=== PATIENT | female | born 1955 | race Caucasian/White ===

== ENCOUNTER 2021-10-11 17:39 | Emergency (ER) | payer MEDICARE, OTHER ==
[~2021-10-11] VITALS: Ht 167.6 cm; Wt 72.7 kg
[2021-10-11] MEDS ORDERED: MIDAZOLAM INJ 2MG/2ML VIAL (J2250 PER 1MG) IV ONE (19:45)
[2021-10-11] MEDS ORDERED: MORPHINE 4 MG/ML 1ML VIAL/SYRINGE (J2270) IV ONE (19:45)
[2021-10-11] MEDS ORDERED: TIMO0.5S42 OP (20:04)
[2021-10-11] MEDS ORDERED: PREDOPD OD (20:05)
[2021-10-11] MEDS ORDERED: XALA0.007 OD (20:06)
[2021-10-11] MEDS ORDERED: FERR325T81 PO (20:07)
[2021-10-11] MEDS ORDERED: DULO1CAP6 PO (20:08)
[2021-10-11] MEDS ORDERED: ATOR40TA75 PO (20:08)
[2021-10-11] MEDS ORDERED: METF-877 PO (20:09)
[2021-10-11] MEDS ORDERED: PANT40TA29 PO (20:10)
[2021-10-11] MEDS ORDERED: METO1TAB87 PO (20:10)
[2021-10-11] MEDS ORDERED: LANTINJ4 SC (20:11)
[2021-10-11] MEDS ORDERED: NORV2TAB PO (20:11)
[2021-10-11 20:45] VITALS: BP 139/94
== END 2021-10-11 22:10 | disposition left against medical advice (07) ==
LOC: EDBD 17:39 → M ED 17:39
DX: T84.020A Dislocation of internal right hip prosthesis, initial encounter (principal); X58.XXXA Exposure to other specified factors, initial encounter; Y92.9 Unspecified place or not applicable; Y93.9 Activity, unspecified; Y99.9 Unspecified external cause status; Z53.9 Procedure and treatment not carried out, unspecified reason; M16.12 Unilateral primary osteoarthritis, left hip; Z88.6 Allergy status to analgesic agent; Z79.899 Other long term (current) drug therapy
CPT/HCPCS: 27250; 73502; 96374; 96375; 99285; J2250; J2270